=== PATIENT | male | born 2000 ===

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

== ENCOUNTER 2022-10-11 17:23 | Emergency (ER) | payer OTHER ==
[~2022-10-11] VITALS: Ht 182.9 cm; Wt 113.4 kg
== END 2022-10-11 22:01 | disposition home or self-care (01) ==
LOC: ER 17:23
DX: J06.9 Acute upper respiratory infection, unspecified (principal); Z20.822 Contact with and (suspected) exposure to COVID-19